=== PATIENT | female | born 1985 | race Two or more races ===

== ENCOUNTER → 2016-12-26 | Outpatient (CLI) | payer SELFPAY ==
--- NOTE | 2016-12-26 13:09 | RADIOLOGY REPORT (SQ) ---
EXAM DESCRIPTION: LUMBAR SPINE COMPLETE COMPLETED DATE/TIME: 12/26/2016 1:00 pm REASON FOR STUDY: LUMBAGO WITH SCIATICA, RIGHT SIDE M54.41 LUMBAGO WITH SCIATICA, RIGHT SIDE COMPARISON: None. NUMBER OF VIEWS: Five views including obliques. TECHNIQUE: AP, lateral, oblique, and sacral radiographic images acquired of the lumbar spine. LIMITATIONS: None. FINDINGS: MINERALIZATION: Normal. SEGMENTATION: Normal. No transitional anatomy. ALIGNMENT: On the AP projection the lumbar spine is tilted relation to the pelvis this may be positio nal. Alignment otherwise is unremarkable. VERTEBRAE: Maintained height. No fracture or worrisome bone lesion. DISCS: Preserved height. No significant osteophytes or end plate irregularity. POSTERIOR ELEMENTS: Pedicles and facets are intact. No pars defect or posterior arch defects. HARDWARE: None in the spine. PARASPINAL SOFT TISSUES: Normal. PELVIS: Intact as visualized. No fractures or worrisome bone lesions. SI joints intact. OTHER: No other significant finding. IMPRESSION: NORMAL 5 VIEW LUMBAR SPINE. TECHNICAL DOCUMENTATION: JOB ID: [id number]- All Rights Reserved
== END ==
LOC: OD 12:41
PROVIDERS: ATTEND Physician Assistant
DX: M54.41 Lumbago with sciatica, right side (principal)
CPT/HCPCS: 72110